=== PATIENT | female | born 1960 | race Caucasian/White ===

== ENCOUNTER 2017-01-18 13:19 | Emergency (ER) | payer OTHER ==
[~2017-01-18] VITALS: Ht 165.1 cm; Wt 81.8 kg
[~2017-01-18 13:19] MED LIST: AMLO5TAB4 GTB; ASCO500S2 GTB; ASPI-664 GTB; ATOR80TA75 GTB; BISA10SU58 PR; CALC-67 GTB; CLON1PAT32 TD; DOXA4TAB3 GTB; ESCI10TA GTB; HYDR-3498 GTB; LEVEM SC; LORA-441 GTB; METO-429 PO; MULT-762 GTB; NORE5TAB15 GTB; PANT40TA3 GTB
[2017-01-18 13:31] VITALS: Ht 165.1 cm; Wt 81.8 kg
[2017-01-18 14:04] LABS: BASOPHILS % 0.6 % (0.0-2.0); EOSINOPHILS # 0.8 10^3/ul (0.0-0.5); EOSINOPHILS % 11.1 % (0.0-7.0); HEMATOCRIT 28.7 % (37.0-47.0); HEMOGLOBIN 9.5 g/dl (12.0-16.0); LYMPHOCYTES # 1.4 10^3/ul (0.8-2.9); LYMPHOCYTES % 20.7 % (15.0-51.0); MEAN CORPUSCULAR HEMOGLOBIN 29.6 pg (29.0-33.0); MEAN CORPUSCULAR HGB CONC 33.1 g/dl (32.0-37.0); MEAN CORPUSCULAR VOLUME 89.4 fl (82.0-101.0); MEAN PLATELET VOLUME 10.2 fl (7.4-10.4); MONOCYTE # 0.6 10^3/ul (0.3-0.9); MONOCYTES % 8.9 % (0.0-11.0); PLATELET COUNT 215 10^3/UL (140-415); RED BLOOD COUNT 3.21 10^6/ul (4.20-5.40); RED CELL DISTRIBUTION WIDTH 14.3 % (11.5-14.5)
[2017-01-18 14:23] LABS: CALCIUM 8.6 mg/dl (8.4-10.2); CREATININE 8.97 mg/dl (0.44-1.00); POTASSIUM 4.3 mmol/L (3.5-5.1)
[2017-01-18 14:24] LABS: INR 0.99; PROTIME 13.1 Sec (12.2-14.2)
[2017-01-18 14:25] LABS: PARTIAL THROMBOPLASTIN TIME 34.3 Sec (25.0-35.0)
--- NOTE | 2017-01-18 14:28 | RADRPT ---
PROCEDURE: Chest Radiograph. CLINICAL INDICATION: Abdominal pain TECHNIQUE: Single frontal chest radiograph. COMPARISON: Chest radiograph 07/20/2015 FINDINGS: The cardiomediastinal silhouette is within normal limits. No infiltrate or effusion is seen. Th e bones are intact. IMPRESSION: 1. Unremarkable chest radiograph. RPTAT: AA .Wilton Paz MD, MD Date Time Electronically viewed and signed by .Wilton Paz MD, on 01/18/2017 14:28 .B/
[2017-01-18 14:35] LABS: TROPONIN-I 0.025 ng/ml (0.00-0.12)
[2017-01-18 15:41] LABS: ADD UMIC YES; UR ASCORBIC ACID 20 mg/dL (NEGATIVE); UR BACTERIA FEW /HPF (NONE SEEN); UR BILIRUBIN (Dip) NEGATIVE (NEGATIVE); UR BLOOD (Dip) 3+ mg/dL (NEGATIVE); UR CLARITY CLOUDY (CLEAR); UR COLOR YELLOW (YELLOW); UR GLUCOSE (Dip) 3+ mg/dL (NEGATIVE); UR KETONES (Dip) NEGATIVE (NEGATIVE); UR LEUKOCYTE ESTERASE (Dip) TRACE Leu/ul (NEGATIVE); UR NITRITE (Dip) NEGATIVE (NEGATIVE); UR RBC 41 /HPF (0-5); UR SPECIFIC GRAVITY (Dip) 1.012 (1.003-1.030); UR SQUAMOUS EPITHELIAL CELL MANY /HPF (FEW); UR TOTAL PROTEIN (Dip) 3+ mg/dl (NEGATIVE); UR UROBILINOGEN (Dip) NEGATIVE (NEGATIVE)
--- NOTE | 2017-01-18 16:26 | ERA ---
ER Documentation Chief Complaint Date/Time DATE: 01/18/17 TIME: 16:24 Chief Complaint BROUGHT IN VIA EMS DUE TO ABDORMAL LAB WORK FROM SNF HPI Patient is a 56-year-old female with chronic kidney disease, diabetes, and hypertension who presents for worsening BUN and creatinine. The patient was brought in by ambulance. The patient was sent from a nursing facility by Dr. Carias to initiate dialysis. She has never had dialysis before. She said that she does have frequent urine infections. She has no complaints at this time. ROS All systems reviewed and are negative except as per history of present illness. Medications Home Meds Active Scripts Metoprolol Tartrate* (Lopressor*) 50 Mg Tab, 50 MG PO BID, #60 TAB Prov:MATT BYRNE MD 07/21/15 Reported Medications Multivitamin (MULTI-VITAMIN DAILY) 1 Each Tablet, 1 TAB GTB DAILY, TAB 07/20/15 Hydrocodone Bit-Acetaminophen* (Leo*) 5-325 Mg Tab, 1 TAB GTB Q6 Y for PAIN LEVEL 6-10, TAB 07/20/15 Pantoprazole* (Protonix*) 40 Mg Tablet.dr, 40 MG GTB DAILY, TAB 07/20/15 Ascorbic Acid* (Vitamin C* Liq) 100 Mg/Ml Syrup, 100 MG GTB DAILY, ML 07/20/15 Escitalopram Oxalate* (Lexapro*) 10 Mg Tablet, 10 MG GTB QHS, #30 TAB 07/20/15 Insulin Detemir* (Levemir*) 100 U/Ml Vial, 22 UNIT SC BID, VIAL 07/20/15 Bisacodyl* (Dulcolax*) 10 Mg/Supp.rect Supp.rect, 10 MG AL Q24H Y for CONSTIPATION, SUPP.RECT 07/20/15 Doxazosin Mesylate* (Doxazosin Mesylate*) 4 Mg Tablet, 4 MG GTB BID, TAB 07/20/15 Clonidine Hcl Transdermal Patch* (Catapres-TTS 2*) 0.2 Mg/24 Hr/Patch.wk Patch.tdwk, 1 PATCH TD Q7D, PATCH 07/20/15 Calcium Carbonate/Vitamin D3* (Os-Wilder 500+D*) 1 Tab Tablet, 1 TAB GTB DAILY, TAB 07/20/15 Norethindrone (Aygestin) 5 Mg Tab, 5 MG GTB DAILY, TAB 07/20/15 Atorvastatin* (Atorvastatin*) 80 Mg Tablet, 80 MG GTB QHS, #30 TAB 07/20/15 Lorazepam* (Ativan*) 0.5 Mg Tablet, 0.5 MG GTB Q6 Y for HYPERVENTILATION , #60 TAB 07/20/15 Aspirin (Low Dose Aspirin) 81 Mg Tablet.dr, 81 MG GTB DAILY, #30 TAB 07/20/15 Amlodipine Besylate* (Norvasc*) 5 Mg Tablet, 5 MG GTB DAILY, TAB 07/20/15 Allergies Allergies: Coded Allergies: No Known Allergy (Unverified , 07/20/15) PMhx/Soc Medical and Surgical Hx: Unable to obtain History of Surgery: Yes Anesthesia Reaction: No Hx Neurological Disorder: Yes Hx Respiratory Disorders: No Hx Cardiac Disorders: Yes (HTN) Hx Psychiatric Problems: No Hx Miscellaneous Medical Probl: Yes (DM) Hx Alcohol Use: No Hx Substance Use: No Hx Tobacco Use: No Smoking Status: Never smoker FmHx Family History: No diabetes Physical Exam Vitals Vital Signs Date Time Temp Pulse Resp B/P Pulse Ox O2 Delivery O2 Flow Rate FiO2 01/18/17 13:31 98.5 77 18 148/93 100 Physical Exam Const: No acute distress Head: Atraumatic Eyes: Normal Conjunctiva ENT: Normal External Ears, Nose and Mouth. Neck: Full range of motion..~ No meningismus. Resp: Clear to auscultation bilaterally Cardio: Regular rate and rhythm, no murmurs Abd: Soft, non tender, non distended. Normal bowel sounds Skin: No petechiae or rashes Back: No midline or flank tenderness Ext: No cyanosis, or edema Neur: Awake and alert Psych: Normal Mood and Affect Result Diagram: 01/18/17 1355 01/18/17 1355 Results 24 hrs Laboratory Tests Test 01/18/17 13:55 01/18/17 15:02 White Blood Count 7.010^3/ul Red Blood Count 3.2110^6/ul Hemoglobin 9.5g/dl Hematocrit 28.7% Mean Corpuscular Volume 89.4fl Mean Corpuscular Hemoglobin 29.6pg Mean Corpuscular Hemoglobin Concent 33.1g/dl Red Cell Distribution Width 14.3% Platelet Count 30095^3/UL Mean Platelet Volume 10.2fl Neutrophils % 58.0% Lymphocytes % 20.7% Monocytes % 8.9% Eosinophils % 11.1% Basophils % 0.6% Nucleated Red Blood Cells % 0.0/100WBC Neutrophils # 4.010^3/ul Lymphocytes # 1.410^3/ul Monocytes # 0.610^3/ul Eosinophils # 0.810^3/ul Basophils # 0.010^3/ul Nucleated Red Blood Cells # 0.010^3/ul Prothrombin Time 13.1Sec Prothrombin Time Ratio 1.0 INR International Normalized Ratio 0.99 Activated Partial Thromboplast Time 34.3Sec Sodium Level 136mmol/L Potassium Level 4.3mmol/L Chloride Level 109mmol/L Carbon Dioxide Level 19mmol/L Anion Gap 12 Blood Urea Nitrogen 66mg/dl Creatinine 8.97mg/dl Glucose Level 320mg/dl Calcium Level 8.6mg/dl Troponin I 0.025ng/ml Urine Color YELLOW Urine Clarity CLOUDY Urine pH 5.0 Urine Specific [place] 1.012 Urine Ketones NEGATIVEmg/dL Urine Nitrite NEGATIVEmg/dL Urine Bilirubin NEGATIVEmg/dL Urine Urobilinogen NEGATIVEmg/dL Urine Leukocyte Esterase TRACELeu/ul Urine Microscopic RBC 41/HPF Urine Microscopic WBC 22/HPF Urine Squamous Epithelial Cells MANY/HPF Urine Bacteria FEW/HPF Urine Hemoglobin 3+mg/dL Urine Glucose 3+mg/dL Urine Total Protein 3+mg/dl Procedures/MDM EKG read by me: Rate/Rhythm: Regular rate and rhythm at a normal rate Intervals: Normal Impression: No evidence of ischemia or arrhythmia Patient is a 56-year-old female presents with worsening renal failure. Her BUN and creatinine are elevated and she will need dialysis. I spoke with Dr. Jackson who is covering for [facility] today and the patient will need transfer to [facility] because she is a [facility] regal patient and this is their new admitting hospital for Medicare regal. Dr. Jackson spoke with the hospitalist at [facility] who is except that the patient in transfer. The patient will be transferred via ambulance and can be seen by Dr. Carias at [facility]. I also spoke with Dr. Carias who will see the patient in consultation. Departure Diagnosis: Primary Impression: Acute renal failure Qualified Code: N17.9 - Acute renal failure, unspecified acute renal failure type Additional Impression: Anemia Qualified Code: D64.9 - Anemia, unspecified type Condition: BETO Schmitt MD Jan 18, 2017 16:26
[2017-01-18 21:25] VITALS: BP 163/74; PULSE 69; RESP 18; TEMP 98
== END 2017-01-18 22:17 | disposition short-term general hospital (02) ==
LOC: E/R 13:19
DX: N17.9 Acute kidney failure, unspecified (principal); D64.9 Anemia, unspecified; I12.9 Hypertensive chronic kidney disease with stage 1 through stage 4 chronic kidney disease, or unspecified chronic kidney disease; N18.9 Chronic kidney disease, unspecified; E11.22 Type 2 diabetes mellitus with diabetic chronic kidney disease; Z99.2 Dependence on renal dialysis; Z79.4 Long term (current) use of insulin; Z79.82 Long term (current) use of aspirin
CPT/HCPCS: 36415; 71010; 80048; 81001; 84484; 85025; 85610; 85730; 93005; Z7502

== ENCOUNTER 2018-03-05 06:00 | Day surgery (SDC) | END 2018-03-05 11:47 | disposition home or self-care (01) ==

== ENCOUNTER 2018-04-09 19:10 | Observation (INO) | END 2018-04-10 13:57 ==